=== PATIENT | male | born 1960 | race Caucasian/White ===

== ENCOUNTER 2017-07-22 05:02 | Inpatient (IN) | payer BC ==
[~2017-07-22] VITALS: Ht 177.8 cm; Wt 88.9 kg
[2017-07-22 05:57] LABS: HEMATOCRIT 37.4 % (38.0-50.0); MCH 30.9 PG (29.0-34.0); MCHC 36.9 G/DL (30.0-36.0); MCV 83.7 FL (86-99); MEAN PLAT.VOLUME 11.5 uM^3 (9.0-12.4); PLATELET COUNT 274 K/uL (156-360); RBC DIS.WIDTH-CV 15.4 % (11.8-14.6); RBC DIS.WIDTH-SD 45.5 % (39-53); RED BLOOD COUNT 4.47 M/uL (4.00-5.50); WHITE BLOOD COUNT 11.8 K/uL (4.1-10.2)
[2017-07-22 06:02] LABS: INTER. NORMALIZED RATIO 1.1; PROTHROMBIN TIME 12.3 SEC (10.2-12.9)
[2017-07-22 06:05] LABS: PTT 29.5 SEC (25-37)
[2017-07-22 06:06] LABS: POTASSIUM ND MEQ/L (3.7-5.4)
[2017-07-22 06:13] LABS: CHLORIDE 90 mEq/L (99-109); SODIUM 121 mEq/L (136-147)
[2017-07-22 06:15] LABS: GLUCOSE 81 mg/dL (70-99)
[2017-07-22 06:16] LABS: ANION GAP 9 MEQ/L (2-14)
[2017-07-22 06:17] LABS: TOTAL BILIRUBIN 11.7 mg/dL (0.0-1.0)
[2017-07-22 06:19] LABS: ALKALINE PHOSPHATASE 767 IU/L (3-129); GFR ESTIMATE (CALCULATED) > 59 mL/min/
[2017-07-22 06:20] LABS: TROP-I INTERPRETATION NEGATIVE; TROPONIN-I < 0.01 ng/mL (0.0-0.30); UREA NITROGEN (BUN) 18 mg/dL (9-23)
[2017-07-22 06:22] LABS: LIPASE 38 U/L (1.0-51.0)
[2017-07-22 06:24] LABS: POTASSIUM 4.4 mEq/L (3.7-5.4)
[2017-07-22 07:28] LABS: ADD MIUA? NO; BILIRUBIN SMALL; BLOOD NEGATIVE; COLOR AMBER ((YELLOW)); GLUCOSE (STRIP) NEGATIVE; KETONES 5; LEUKOCYTES NEGATIVE; NITRITE NEGATIVE; PROTEIN (STRIP) NEGATIVE
[2017-07-22 07:44] LABS: SPECIFIC GRAVITY 1.056 (1.000-1.030)
[2017-07-22] MEDS ORDERED: CLONAZEPAM0.5 MG PO (08:35)
[2017-07-22 10:57] LABS: URIC ACID 3.7 mg/dL (3.1-9.2)
[2017-07-22 11:58] VITALS: BP 112/67
[2017-07-22 12:11] LABS: UCUL ADDED? NO
[2017-07-22 13:22] VITALS: BP 139/64
[2017-07-22 15:50] VITALS: BP 131/75
[2017-07-22 16:42] LABS: ANION GAP 8 MEQ/L (2-14); CHLORIDE 91 MEQ/L (99-109); GFR ESTIMATE (CALCULATED) > 59 mL/min/; GLUCOSE 92 mg/dL (70-99); POTASSIUM 4.5 MEQ/L (3.7-5.4); SAMPLE HEMOLYSIS CHECK 0; SAMPLE ICTERIC CHECK 3; SAMPLE LIPEMIA CHECK 0; SODIUM 125 MEQ/L (136-147); UREA NITROGEN (BUN) 17 mg/dL (9-23)
[2017-07-22 19:40] VITALS: BP 128/72
[2017-07-23] VITALS: BP 122/65
[2017-07-23 03:53] VITALS: BP 112/67
[2017-07-23 06:01] LABS: HEMATOCRIT 36.7 % (38.0-50.0); MCH 30.4 PG (29.0-34.0); MCHC 35.7 G/DL (30.0-36.0); MCV 85.2 FL (86-99); RBC DIS.WIDTH-CV 15.9 % (11.8-14.6); RED BLOOD COUNT 4.31 M/uL (4.00-5.50); WHITE BLOOD COUNT 11.9 K/uL (4.1-10.2)
[2017-07-23 06:20] LABS: INTER. NORMALIZED RATIO 1.2; PROTHROMBIN TIME 12.7 SEC (10.2-12.9)
[2017-07-23 06:25] LABS: PLAT.SUFFICIENCY ADEQUATE; PLATELET COUNT 254 K/uL (156-360)
[2017-07-23 06:51] LABS: ALKALINE PHOSPHATASE 735 IU/L (3-129); GFR ESTIMATE (CALCULATED) > 59 mL/min/; POTASSIUM 4.6 MEQ/L (3.7-5.4); SODIUM 124 MEQ/L (136-147); TOTAL BILIRUBIN 13.1 MG/DL (0.0-1.0); UREA NITROGEN (BUN) 17 mg/dL (9-23)
[2017-07-23 07:55] LABS: ANION GAP 9 MEQ/L (2-14); CHLORIDE 90 MEQ/L (99-109); GLUCOSE 72 mg/dL (70-99)
[2017-07-23 08:08] VITALS: BP 106/56
[2017-07-23 12:44] VITALS: BP 120/65
[2017-07-23 15:51] VITALS: BP 114/65
[2017-07-23 16:14] LABS: ANION GAP 6 MEQ/L (2-14); CHLORIDE 91 MEQ/L (99-109); POTASSIUM 4.3 MEQ/L (3.7-5.4); SAMPLE HEMOLYSIS CHECK 0; SAMPLE ICTERIC CHECK 3; SAMPLE LIPEMIA CHECK 0; SODIUM 122 MEQ/L (136-147)
[2017-07-23 16:20] LABS: GFR ESTIMATE (CALCULATED) > 59 mL/min/; UREA NITROGEN (BUN) 17 mg/dL (9-23)
[2017-07-23 16:23] LABS: GLUCOSE 94 mg/dL (70-99)
[2017-07-23 20:25] VITALS: BP 120/57
[2017-07-24 00:27] VITALS: BP 131/62
[2017-07-24 04:00] VITALS: BP 126/73
[2017-07-24 07:04] LABS: ALKALINE PHOSPHATASE 816 IU/L (3-129); ANION GAP 7 MEQ/L (2-14); CHLORIDE 90 MEQ/L (99-109); GFR ESTIMATE (CALCULATED) > 59 mL/min/; GLUCOSE 72 mg/dL (70-99); POTASSIUM 4.6 MEQ/L (3.7-5.4); SAMPLE HEMOLYSIS CHECK 0; SAMPLE ICTERIC CHECK 3; SAMPLE LIPEMIA CHECK 0; SODIUM 125 MEQ/L (136-147); UREA NITROGEN (BUN) 19 mg/dL (9-23)
[2017-07-24 07:52] VITALS: BP 108/63
[2017-07-24 10:50] LABS: HBSG INDEX 0.19
[2017-07-24 10:51] LABS: HPCA INDEX 0.11
[2017-07-24 10:52] LABS: ANTI-HEPATITIS A VIRUS (IGM) Nonreactive; ANTI-HEPATITIS B CORE (IGM) Nonreactive; HAV INDEX 0.13; HBC IgM INDEX 0.14
[2017-07-24 15:46] VITALS: BP 123/67
[2017-07-24 23:40] VITALS: BP 133/73
[2017-07-25 07:07] LABS: ALKALINE PHOSPHATASE 725 IU/L (3-129); ANION GAP 11 MEQ/L (2-14); CHLORIDE 91 MEQ/L (99-109); GFR ESTIMATE (CALCULATED) > 59 mL/min/; GLUCOSE 72 mg/dL (70-99); POTASSIUM 4.7 MEQ/L (3.7-5.4); SAMPLE HEMOLYSIS CHECK 0; SAMPLE ICTERIC CHECK 3; SAMPLE LIPEMIA CHECK 0; SODIUM 127 MEQ/L (136-147); UREA NITROGEN (BUN) 23 mg/dL (9-23)
[2017-07-25 08:15] VITALS: BP 114/69
[2017-07-25 08:20] VITALS: BP 114/69
[2017-07-25] MEDS ORDERED: MORPHINE SULFAT15 MG PO (08:37)
[2017-07-25] MEDS ORDERED: TAMSULOSIN HCL0.4 MG PO (08:37)
[2017-07-25] MEDS ORDERED: SODIUM CHLORIDE1 G1 PO (08:37)
[2017-07-27] MEDS ORDERED: ZOFRAN8 MG PO (14:16)
[2017-07-27] MEDS ORDERED: PROCHLORPER5 MG/1 ML PO (14:18)
[2017-07-27] MEDS ORDERED: ALLOPURINOL100 MG PO (14:20)
== END 2017-07-25 10:20 | disposition home or self-care (01) | DRG 642 ==
LOC: EME 05:02 → 5SOUTH 07:36 → EDOF 07:36 → ENRESERV 07:40 → 5SOUTH 09:08
PROVIDERS: Emergency Medicine; Internal Medicine; Physician Assistant Medical
PROC: 0FB03ZX Excision of Liver, Percutaneous Approach, Diagnostic (ICD-10-PCS; principal; 2017-07-23)
DX: E72.20 Disorder of urea cycle metabolism, unspecified (principal); E22.2 Syndrome of inappropriate secretion of antidiuretic hormone; K76.6 Portal hypertension; C34.32 Malignant neoplasm of lower lobe, left bronchus or lung; C78.7 Secondary malignant neoplasm of liver and intrahepatic bile duct; R17 Unspecified jaundice; R33.9 Retention of urine, unspecified; R50.9 Fever, unspecified; R11.2 Nausea with vomiting, unspecified; F17.200 Nicotine dependence, unspecified, uncomplicated; F41.9 Anxiety disorder, unspecified; K76.0 Fatty (change of) liver, not elsewhere classified; F12.90 Cannabis use, unspecified, uncomplicated; R16.0 Hepatomegaly, not elsewhere classified; R39.11 Hesitancy of micturition; Z90.49 Acquired absence of other specified parts of digestive tract; Z80.8 Family history of malignant neoplasm of other organs or systems; I71.4 Abdominal aortic aneurysm, without rupture
CPT/HCPCS: 70553; 74177; 76705; 76942; 80048 91; 80053; 80074; 81003; 82140; 83605; 83690; 83880; 83930; 83935; 84300; 84443; 84484; 84550; 84999; 85027; 85048; 85610; 85730; 87040; 88307; 88341 TC; 88342 TC; 93005; 99281; 99285; C9113; J0696; J2270; J2405; J3010; J7030; J7042; J7050

== ENCOUNTER 2017-07-28 21:07 | Emergency (ER) | payer BC ==
[~2017-07-28] VITALS: Ht 180.3 cm; Wt 89.2 kg
[~2017-07-28 21:07] MED LIST: ALLOPURINOL100 MG PO; CLONAZEPAM0.5 MG PO; MORPHINE SULFAT15 MG PO; PROCHLORPER5 MG/1 ML PO; SODIUM CHLORIDE1 G1 PO; TAMSULOSIN HCL0.4 MG PO; ZOFRAN8 MG PO
[2017-07-28 23:27] VITALS: BP 126/69
== END 2017-07-28 23:50 | disposition home or self-care (01) ==
LOC: EME 21:07 → EXP 21:07
DX: R60.0 Localized edema (principal); C34.90 Malignant neoplasm of unspecified part of unspecified bronchus or lung; Z79.899 Other long term (current) drug therapy; F41.9 Anxiety disorder, unspecified; F17.200 Nicotine dependence, unspecified, uncomplicated
CPT/HCPCS: 93971; 99281; 99284

== ENCOUNTER 2017-12-23 17:41 | Inpatient (IN) | payer BC ==
[~2017-12-23] VITALS: Ht 180.3 cm; Wt 92.0 kg
[~2017-12-23 17:41] MED LIST changes: +LASIX20 MG PO
[2017-12-23 18:22] LABS: HEMATOCRIT 39.3 % (38.0-50.0); HEMOGLOBIN 14.6 G/DL (12.5-16.6); MCH 32.9 PG (29.0-34.0); MCHC 37.2 G/DL (30.0-36.0); MCV 88.5 FL (86-99); PLATELET COUNT 249 K/uL (156-360); RBC DIS.WIDTH-CV 12.9 % (11.8-14.6); RBC DIS.WIDTH-SD 42.3 % (39-53); RED BLOOD COUNT 4.44 M/uL (4.00-5.50); WHITE BLOOD COUNT 8.9 K/uL (4.1-10.2)
[2017-12-23 18:24] LABS: ALBUMIN 4.1 g/dL (3.2-4.8); CHLORIDE 82 mEq/L (99-109); SODIUM 116 mEq/L (136-147)
[2017-12-23 18:26] LABS: GLUCOSE 135 mg/dL (70-99); TOTAL PROTEIN 6.8 g/dL (6.4-8.3)
[2017-12-23 18:28] LABS: TOTAL BILIRUBIN 0.5 mg/dL (0.0-1.0)
[2017-12-23 18:30] LABS: ALKALINE PHOSPHATASE 151 IU/L (3-129); GFR ESTIMATE (CALCULATED) > 59 mL/min/ (58.99-99999)
[2017-12-23 18:31] LABS: AST (GOT) 25 IU/L (2-34); UREA NITROGEN (BUN) 12 mg/dL (9-23)
[2017-12-23 18:33] LABS: ALT (GPT) 35 IU/L (3-49); LIPASE 32 U/L (1.0-51.0)
[2017-12-23] MEDS ORDERED: CHANTIX1 EACH PO (19:52)
[2017-12-23] MEDS ORDERED: OMEPRAZOLE40 M1 PO (19:52)
[2017-12-23] MEDS ORDERED: COMPAZINE10 MG PO (19:54)
[2017-12-23 22:02] VITALS: BP 103/62
[2017-12-23 22:05] LABS: APPEARANCE CLEAR ((CLEAR)); BILIRUBIN NEGATIVE; BLOOD NEGATIVE; COLOR YELLOW ((YELLOW)); GLUCOSE (STRIP) NEGATIVE; KETONES NEGATIVE; LEUKOCYTES NEGATIVE; NITRITE NEGATIVE; PROTEIN (STRIP) 100; SPECIFIC GRAVITY 1.053 (1.000-1.030)
[2017-12-23 22:16] LABS: BACTERIA NONE SEEN /HPF; EPITHELIAL CELLS NONE SEEN /HPF; MUCUS TRACE /LPF; RED BLOOD CELLS 0-5 /HPF (0-5); UCUL ADDED? NO; WHITE BLOOD CELLS 0-5 /HPF (0-5)
[2017-12-23 22:18] VITALS: BP 104/76
[2017-12-23 22:58] LABS: CHLORIDE 86 mEq/L (99-109); POTASSIUM 4.3 mEq/L (3.7-5.4)
[2017-12-23 22:59] LABS: GLUCOSE 111 mg/dL (70-99)
[2017-12-23 23:01] LABS: SODIUM 122 mEq/L (136-147)
[2017-12-23 23:03] LABS: CREATININE 0.9 mg/dL (0.6-1.3); GFR ESTIMATE (CALCULATED) > 59 mL/min/ (58.99-99999)
[2017-12-23 23:04] LABS: UREA NITROGEN (BUN) 14 mg/dL (9-23)
[2017-12-24 04:32] VITALS: BP 101/55
[2017-12-24 06:05] LABS: SODIUM 119 MEQ/L (136-147)
[2017-12-24 06:06] LABS: CHLORIDE 85 MEQ/L (99-109); CREATININE 0.8 MG/DL (0.6-1.3); GFR ESTIMATE (CALCULATED) > 59 mL/min/ (58.99-99999); GLUCOSE 86 mg/dL (70-99); POTASSIUM 4.7 MEQ/L (3.7-5.4); UREA NITROGEN (BUN) 12 mg/dL (9-23)
[2017-12-24 09:00] VITALS: BP 147/73
[2017-12-24 09:26] LABS: CHLORIDE 86 MEQ/L (99-109); CREATININE 0.7 MG/DL (0.6-1.3); GFR ESTIMATE (CALCULATED) > 59 mL/min/ (58.99-99999); GLUCOSE 87 mg/dL (70-99); POTASSIUM 4.7 MEQ/L (3.7-5.4); UREA NITROGEN (BUN) 11 mg/dL (9-23)
[2017-12-24 09:29] LABS: SODIUM 117 MEQ/L (136-147)
[2017-12-24 12:00] VITALS: BP 119/77
[2017-12-24 13:14] LABS: CHLORIDE 85 MEQ/L (99-109); CREATININE 0.8 MG/DL (0.6-1.3); GFR ESTIMATE (CALCULATED) > 59 mL/min/ (58.99-99999); GLUCOSE 85 mg/dL (70-99); POTASSIUM 4.6 MEQ/L (3.7-5.4); UREA NITROGEN (BUN) 10 mg/dL (9-23)
[2017-12-24 13:15] LABS: SODIUM 117 MEQ/L (136-147)
[2017-12-24 13:48] LABS: ALBUMIN 3.8 G/DL (3.2-4.8); PHOSPHORUS 2.5 mg/dL (2.5-4.9); URIC ACID 3.1 mg/dL (3.1-9.2)
[2017-12-24 16:46] VITALS: BP 132/78
[2017-12-24 19:25] LABS: CHLORIDE 86 MEQ/L (99-109); CREATININE 0.8 MG/DL (0.6-1.3); GFR ESTIMATE (CALCULATED) > 59 mL/min/ (58.99-99999); GLUCOSE 127 mg/dL (70-99); UREA NITROGEN (BUN) 11 mg/dL (9-23)
[2017-12-24 19:28] LABS: SODIUM 115 MEQ/L (136-147)
[2017-12-24 23:30] LABS: CHLORIDE 87 mEq/L (99-109)
[2017-12-24 23:32] LABS: GLUCOSE 89 mg/dL (70-99); SODIUM 121 mEq/L (136-147)
[2017-12-24 23:35] LABS: CREATININE 0.9 mg/dL (0.6-1.3); GFR ESTIMATE (CALCULATED) > 59 mL/min/ (58.99-99999)
[2017-12-24 23:36] LABS: UREA NITROGEN (BUN) 10 mg/dL (9-23)
[2017-12-25 03:11] VITALS: BP 146/71
[2017-12-25 03:20] LABS: CHLORIDE 88 mEq/L (99-109); POTASSIUM 4.1 mEq/L (3.7-5.4); SODIUM 122 mEq/L (136-147)
[2017-12-25 03:22] LABS: GLUCOSE 86 mg/dL (70-99)
[2017-12-25 03:26] LABS: GFR ESTIMATE (CALCULATED) > 59 mL/min/ (58.99-99999)
[2017-12-25 03:27] LABS: UREA NITROGEN (BUN) 10 mg/dL (9-23)
[2017-12-25 06:50] VITALS: BP 124/71
[2017-12-25 07:54] LABS: BASOPHIL (%) 0.4 % (0-1); BASOPHIL COUNT 0.1 K/uL (0-0.1); EOSINOPHIL (%) 0.3 % (0-5); HEMATOCRIT 42.2 % (38.0-50.0); HEMOGLOBIN 15.1 G/DL (12.5-16.6); IMMATURE GRANULOCYTE (%) 0.5 % (0.0-0.7); LYMPHOCYTE (%) 17.1 % (15-42); LYMPHOCYTE COUNT 1.9 K/uL (1.0-2.8); MCH 31.7 PG (29.0-34.0); MCHC 35.8 G/DL (30.0-36.0); MCV 88.7 FL (86-99); MONOCYTE (%) 5.2 % (3-12); MONOCYTE COUNT 0.6 K/uL (0-0.8); NEUTROPHIL (%) 76.5 % (45-76); NEUTROPHIL COUNT 8.6 K/uL (1.8-6.4); PLATELET COUNT 238 K/uL (156-360); RBC DIS.WIDTH-CV 13.1 % (11.8-14.6); RBC DIS.WIDTH-SD 42.6 % (39-53); RED BLOOD COUNT 4.76 M/uL (4.00-5.50); WHITE BLOOD COUNT 11.3 K/uL (4.1-10.2)
[2017-12-25 08:30] LABS: CHLORIDE 88 MEQ/L (99-109); CREATININE 0.8 MG/DL (0.6-1.3); GFR ESTIMATE (CALCULATED) > 59 mL/min/ (58.99-99999); GLUCOSE 88 mg/dL (70-99); POTASSIUM 4.3 MEQ/L (3.7-5.4); SODIUM 121 MEQ/L (136-147); UREA NITROGEN (BUN) 11 mg/dL (9-23)
[2017-12-25 12:56] LABS: CHLORIDE 86 MEQ/L (99-109); CREATININE 0.9 MG/DL (0.6-1.3); GFR ESTIMATE (CALCULATED) > 59 mL/min/ (58.99-99999); POTASSIUM 4.1 MEQ/L (3.7-5.4); SODIUM 120 MEQ/L (136-147); UREA NITROGEN (BUN) 12 mg/dL (9-23)
[2017-12-25 13:03] LABS: GLUCOSE 118 mg/dL (70-99)
[2017-12-25 16:04] VITALS: BP 128/82
[2017-12-25 19:25] VITALS: BP 136/79
[2017-12-25 19:37] LABS: CHLORIDE 90 MEQ/L (99-109); CREATININE 0.9 MG/DL (0.6-1.3); GFR ESTIMATE (CALCULATED) > 59 mL/min/ (58.99-99999); GLUCOSE 95 mg/dL (70-99); POTASSIUM 4.3 MEQ/L (3.7-5.4); SODIUM 122 MEQ/L (136-147); UREA NITROGEN (BUN) 15 mg/dL (9-23)
[2017-12-25 23:12] VITALS: BP 118/55
[2017-12-26 03:19] VITALS: BP 116/59
[2017-12-26 06:14] LABS: BASOPHIL (%) 0.7 % (0-1); BASOPHIL COUNT 0.1 K/uL (0-0.1); EOSINOPHIL (%) 0.5 % (0-5); HEMATOCRIT 44.1 % (38.0-50.0); HEMOGLOBIN 15.4 G/DL (12.5-16.6); IMMATURE GRANULOCYTE (%) 0.5 % (0.0-0.7); LYMPHOCYTE COUNT 1.9 K/uL (1.0-2.8); MCH 31.6 PG (29.0-34.0); MCHC 34.9 G/DL (30.0-36.0); MCV 90.4 FL (86-99); MONOCYTE (%) 7.6 % (3-12); MONOCYTE COUNT 0.6 K/uL (0-0.8); NEUTROPHIL (%) 66.7 % (45-76); NEUTROPHIL COUNT 5.4 K/uL (1.8-6.4); PLATELET COUNT 253 K/uL (156-360); RBC DIS.WIDTH-CV 13.1 % (11.8-14.6); RBC DIS.WIDTH-SD 43.4 % (39-53); RED BLOOD COUNT 4.88 M/uL (4.00-5.50)
[2017-12-26 06:40] VITALS: BP 116/66
[2017-12-26 06:40] LABS: CHLORIDE 91 MEQ/L (99-109); CREATININE 1.1 MG/DL (0.6-1.3); GFR ESTIMATE (CALCULATED) > 59 mL/min/ (58.99-99999); GLUCOSE 86 mg/dL (70-99); POTASSIUM 4.9 MEQ/L (3.7-5.4); SODIUM 125 MEQ/L (136-147); UREA NITROGEN (BUN) 16 mg/dL (9-23)
[2017-12-26] MEDS ORDERED: NICOTINE PATCH1 EAC2 TD (10:13)
[2017-12-26] MEDS ORDERED: SODIUM CHLORIDE1 G1 PO (10:13)
[2017-12-26] MEDS ORDERED: FUROSEMIDE20 MG PO (10:13)
[2017-12-26] MEDS ORDERED: ATIVAN1 MG PO (10:13)
== END 2017-12-26 11:51 | disposition home or self-care (01) | DRG 436 ==
LOC: EME 17:41 → 4EAST 20:32 → EDOF 20:32 → ENRESERV 20:33 → 4EAST 21:42 → ENRESERV 12-24 13:56 → 5EAST 12-24 16:18
PROVIDERS: Hospitalist; Internal Medicine; Internal Medicine Nephrology
DX: C78.7 Secondary malignant neoplasm of liver and intrahepatic bile duct (principal); E22.2 Syndrome of inappropriate secretion of antidiuretic hormone; E86.0 Dehydration; F43.22 Adjustment disorder with anxiety; J44.9 Chronic obstructive pulmonary disease, unspecified; N40.0 Benign prostatic hyperplasia without lower urinary tract symptoms; G89.4 Chronic pain syndrome; F17.210 Nicotine dependence, cigarettes, uncomplicated; Z79.891 Long term (current) use of opiate analgesic; Z85.118 Personal history of other malignant neoplasm of bronchus and lung; Z82.49 Family history of ischemic heart disease and other diseases of the circulatory system; Z83.3 Family history of diabetes mellitus
CPT/HCPCS: 36415; 80048; 80048 91; 80053; 80069; 81003; 83690; 83930; 83935; 84300; 84550; 85025; 85027; 93005; 99281; 99285; J1650; J1940; J2060; J2270; J2405; J7030; J7050; J9351; Q0164